=== PATIENT | male | born 1970 | race Caucasian/White ===

== ENCOUNTER 2017-01-27 07:28 | Emergency (ER) | payer SELFPAY ==
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
--- NOTE | 2017-01-27 08:51 | CT ---
EXAMINATION: Non contrast CT head. Coronal and sagittal reformats. HISTORY: Head injury FINDINGS: No evidence of intra or extra axial hemorrhage, mass, midline shift, hydrocephalus or edema. No hypoattenuation changes in the major vascular territories to suggest acute infarct. No abnormal intracranial calcifications are detected. No evidence of substantial vascular calcifica tions. Paranasal sinuses and mastoid air cells are well aerated without substantial findings. The orbits a nd globes are symmetric. Pituitary fossa appears unremarkable. Calvarium is intact. No evidence of skull fracture. There is a small soft tissue hematoma along the medial left parietal region IMPRESSION: No acute intracranial findings.
[2017-01-27 09:24] VITALS: BP 141/82
== END 2017-01-27 09:20 | disposition home or self-care (01) ==
LOC: MW.ED 07:28
DX: S06.0X0A Concussion without loss of consciousness, initial encounter (principal); W03.XXXA Other fall on same level due to collision with another person, initial encounter
CPT/HCPCS: 70450; 70450-26; 99283-25; 99284

== ENCOUNTER 2018-11-21 23:41 | Observation (INO) | payer OTHER ==
[2018-11-22] MEDS ORDERED: Aspirin 81 MG Tab.Chew PO ONE ×2 (00:13→00:25)
[2018-11-22] MEDS ORDERED: Sodium Chloride 0.9% 2.5 ML Syringe FLUSH PRN ×2 (00:13→02:22)
[2018-11-22] MEDS ORDERED: Sodium Chloride 0.9% 10 ML Syringe FLUSH PRN ×2 (00:13→02:22)
[2018-11-22] MEDS ORDERED: Pantoprazole 40 MG Vial IVPUSH ONE (00:15)
[2018-11-22] MEDS ORDERED: Sodium Chloride 0.9% 1,000 ML IV ONE (00:23)
--- NOTE | 2018-11-22 00:23 | EDM.PDOC ---
ED HPI GENERAL MEDICAL PROBLEM - General Chief Complaint: General Stated Complaint: PT HAS NUMBNESS IN HANDS Time Seen by Provider: 11/21/18 23:45 - History of Present Illness INITIAL COMMENTS - FREE TEXT/NARRATIVE: HISTORY AND PHYSICAL: History of present illness: The patient is a 48-year-old male with no significant cardiac or pulmonary disease who presents with a long-standing history of back discomfort for which she has not seen her provider for an restless sleeping was says that he had a normal day and ate chicken Adam for dinner and went to sleep. He went to bed about 7:30 PM and says that about 9:00 he woke up because he was very restless and couldn't sleep and he says that he felt very bloated. He says that his upper abdomen was bloated before going to bed and it seemed more bloated when he woke up. He had a sensation of acid reflux/heartburn and he took some Tums which made him feel worse and then he proceeded to vomit 3 times all food. There was no blood or coffee ground emesis and no bilious emesis. Afterwards he did not feel better and he had no diarrhea. He never felt short of breath. After this episode of vomiting he had some discomfort in his left upper chest wall area and it seemed to persist so he came in for evaluation. Initially with the triage nurse he rated it as a 2/10 and said it felt like a muscle strain but when I talk to him his pain was 0/10 and he says that it did feel muscular like but it also was the acid reflux earlier. The patient has no significant abdominal pain and currently does not feel nauseated. Is no history of food intolerance but he says that he has had issues with milk and cheese and cream sauces in the past and he is not sure if his dinner upset him. Patient denies any significant tobacco use or drug use but does drink beer on a daily basis. He is very active and says he never has chest pain or shortness of breath with activities and he does not get heartburn frequently just once in a while. The patient's family history is significant for father who had cardiac disease and intervention at 61 years of age and a brother who has about 17 stents in his first one was in his late 30s or early 40s. The patient took no other medications prior to coming here and says that he only came in this evening because these events scared him. He also complained to nursing and to me that after the vomiting he did have tingling in his hands bilaterally which has now subsided. He is not sure if that's due to his back problems but says that he does get this episodically and usually he "pops his neck" and it goes away. He has never had this evaluated and currently he is not having any upper extremity weakness or tingling/numbness. The patient says that he is at his baseline with no systemic complaints that he is concerned about tonight's events. He has no leg pain or swelling and he has no new or different neck or back pain he says he did some increase activities a day or so ago and is not sure if maybe he pulled a muscle in his chest wall. The patient cannot elicit the chest pain with deep breaths Patient tells nursing after my initial interview that he did take a baby aspirin at 9 PM with the symptoms Review of systems: As per history of present illness and below otherwise all systems reviewed and negative. Past medical history: As per history of present illness and as reviewed below otherwise noncontributory. Surgical history: As per history of present illness and as reviewed below otherwise noncontributory. Social history: No reported history of drug or alcohol abuse. Family history: As per history of present illness and as reviewed below otherwise noncontributory. Physical exam: General: Well-developed well-nourished fit man who is nontoxic and ambulated into the ED without distress. Vital signs are noted by me. HEENT: Atraumatic, normocephalic, pupils reactive, negative for conjunctival pallor or scleral icterus, mucous membranes moist, throat clear, neck supple, nontender, trachea midline. There are some skin changes on his cheeks, telangiectasias, noted. Lungs: Clear to auscultation, breath sounds equal bilaterally, chest nontender. On palpation there are no defects deformities or crepitus of the chest wall on the left and I cannot reproduce the pain with palpation area, the patient says that when he takes a deep breath he does not feel any discomfort or grabbing in that left chest area. Heart: S1S2, regular rhythm and slightly bradycardic rate on my evaluation, no overt murmurs, negative for clicks, rubs, or JVD. Abdomen: Soft, nondistended, nontender. Negative for masses or hepatosplenomegaly. Negative for costovertebral tenderness. There is no rebound or guarding and bowel sounds are slightly hypoactive on my evaluation. More specifically there is no epigastric right upper or left upper quadrant tenderness Pelvis: Stable nontender. Genitourinary: Deferred. Rectal: Deferred. Extremities: Atraumatic, negative for cords or calf pain. Neurovascular unremarkable. With range of motion of the upper extremities I cannot elicit the chest pain. There is no pedal edema or leg asymmetry Neuro: Awake, alert, oriented. Cranial nerves II through XII unremarkable. Cerebellum unremarkable. Motor and sensory unremarkable throughout. Exam nonfocal. Diagnostics: EKG chest x-ray CBC CMP amylase lipase troponin H. pylori Therapeutics: IV O2 monitor fluids aspirin --3 baby aspirin, as the patient says he took one aspirin at 9 PM, Protonix I discussed with the patient my concerns about his presenting symptoms of the heartburn/acid reflux followed by vomiting and now the left chest pain in light of his family history. He does not have a provider and is not sure what his cholesterol or lipid panel is and although he is active without chest pain these symptoms and his presentation are concerning for either a cardiac or GI issue or cause. At express these concerns to the patient and said that is why we are doing such a workup. He States understanding. Discussed with the patient and at bedside at length all testing results and my concerns. He is positive for H. pylori he also has a significant family history and had this very atypical left-sided chest pain which has resolved. I recommended observation admission and he is agreeable. 0130: I discussed this case with Dr. Galo who accepts the patient is aware of testing results Impression: Episode of chest pain H. pylori positive Definitive disposition and diagnosis as appropriate pending reevaluation and review of above. Left Chest Pain Score (Numeric/FACES): 2 - Related Data Allergies Allergy/AdvReac Type Severity Reaction Status Date / Time No Known Allergies Allergy Verified 11/21/18 23:52 Home Meds: Home Meds . [No Known Home Meds] 01/27/17 [History] Past Medical History - Past Health History Medical/Surgical History: Denies Medical/Surgical History HEENT History: Reports: None Cardiovascular History: Reports: None Respiratory History: Reports: None Gastrointestinal History: Reports: None Genitourinary History: Reports: None Musculoskeletal History: Reports: None Neurological History: Reports: None Psychiatric History: Reports: None Endocrine/Metabolic History: Reports: None Hematologic History: Reports: None Immunologic History: Reports: None Oncologic (Cancer) History: Reports: None Dermatologic History: Reports: None - Infectious Disease History Infectious Disease History: Reports: Chicken Pox - Past Surgical History Head Surgeries/Procedures: Reports: None Social & Family History - Family History Family Medical History: Noncontributory - Tobacco Use Smoking Status *Q: Current Every Day Smoker Years of Tobacco use: 35 Packs/Tins Daily: 0.3 - Caffeine Use Caffeine Use: Reports: Coffee Caffeine Use Comment: 1 cup daily - Recreational Drug Use Recreational Drug Use: No ED ROS GENERAL - Review of Systems Review Of Systems: ROS reveals no pertinent complaints other than HPI. ED EXAM, GENERAL - Physical Exam Exam: See Below (See dictation) Course - Vital Signs Last Recorded V/S: Last Vital Signs Temp 36.1 C 11/21/18 23:48 Pulse 52 L 11/22/18 01:18 Resp 16 11/22/18 01:18 BP 137/94 H 11/21/18 23:48 Pulse Ox 96 11/22/18 01:18 - Orders/Labs/Meds Orders: Active Orders 24 hr Category Date Time Status Cardiac Monitoring [RC] . DIRECTED Care 11/22/18 00:08 Active EKG Documentation Completion [RC] STAT Care 11/22/18 00:08 Active Oxygen Therapy, ED [RC] ASDIRECTED Care 11/22/18 00:08 Active Pulse Oximetry [RC] ASDIRECTED Care 11/22/18 00:08 Active Sodium Chloride 0.9% [Saline Flush] Med 11/22/18 00:13 Active 10 ml FLUSH ASDIRECTED PRN Sodium Chloride 0.9% [Saline Flush] Med 11/22/18 00:13 Active 2.5 ml FLUSH ASDIRECTED PRN Saline Lock Insert [OM.PC] Stat Oth 11/22/18 00:08 Ordered Medication Orders Sodium Chloride (Saline Flush) 10 ml FLUSH ASDIRECTED PRN PRN Reason: Keep Vein Open Last Admin: 11/22/18 00:23 Dose: 10 ml Sodium Chloride (Saline Flush) 2.5 ml FLUSH ASDIRECTED PRN PRN Reason: Keep Vein Open Last Admin: 11/22/18 00:22 Dose: 2.5 ml Labs: Laboratory Tests 11/22/18 11/22/18 11/22/18 Range/Units 00:21 00:21 00:21 WBC 9.40 (4.0-11.0) K/uL RBC 4.82 (4.50-5.90) M/uL Hgb 14.8 (13.0-17.0) g/dL Hct 42.3 (38.0-50.0) % MCV 87.8 (80.0-98.0) fL MCH 30.7 (27.0-32.0) pg MCHC 35.0 (31.0-37.0) g/dL RDW Std Deviation 39.6 (28.0-62.0) fl RDW Coeff of Jessy 13 (11.0-15.0) % Plt Count 220 (150-400) K/uL MPV 9.70 (7.40-12.00) fL Neut % (Auto) 60.3 (48.0-80.0) % Lymph % (Auto) 30.6 (16.0-40.0) % Collier % (Auto) 6.6 (0.0-15.0) % Eos % (Auto) 2.2 (0.0-7.0) % Baso % (Auto) 0.3 (0.0-1.5) % Neut # (Auto) 5.7 (1.4-5.7) K/uL Lymph # (Auto) 2.9 H (0.6-2.4) K/uL Collier # (Auto) 0.6 (0.0-0.8) K/uL Eos # (Auto) 0.2 (0.0-0.7) K/uL Baso # (Auto) 0.0 (0.0-0.1) K/uL Sodium 141 (136-148) mmol/L Potassium 4.2 (3.5-5.1) mmol/L Chloride 105 (98-107) mmol/L Carbon Dioxide 28.0 (21.0-32.0) mmol/L BUN 19 H (7.0-18.0) mg/dL Creatinine 1.0 (0.8-1.3) mg/dL Est Cr Clr Drug Dosing 85.50 mL/min Estimated GFR (MDRD) > 60.0 ml/min Glucose 109 H (74-106) mg/dL Calcium 9.1 (8.5-10.1) mg/dL Total Bilirubin 0.7 (0.2-1.0) mg/dL AST 20 (15-37) IU/L ALT 28 (14-63) IU/L Alkaline Phosphatase 39 L (46-116) U/L Troponin I < 0.050 (0.000-0.056) ng/mL Total Protein 7.6 (6.4-8.2) g/dL Albumin 4.1 (3.4-5.0) g/dL Globulin 3.5 (2.6-4.0) g/dL Albumin/Globulin Ratio 1.2 (0.9-1.6) Amylase 77 (25-115) U/L Lipase 243 (73-393) U/L Urine Color Urine Appearance Urine pH (5.0-8.0) Ur Specific Elgin (1.001-1.035) Urine Protein (NEGATIVE) mg/dL Urine Glucose (UA) (NEGATIVE) mg/dL Urine Ketones (NEGATIVE) mg/dL Urine Occult Blood (NEGATIVE) Urine Nitrite (NEGATIVE) Urine Bilirubin (NEGATIVE) Urine Urobilinogen (<2.0) EU/dL Ur Leukocyte Esterase (NEGATIVE) Ethyl Alcohol mg/dL H. pylori IgG Antibody POSITIVE H (NEG) 11/22/18 11/22/18 Range/Units 00:21 00:21 WBC (4.0-11.0) K/uL RBC (4.50-5.90) M/uL Hgb (13.0-17.0) g/dL Hct (38.0-50.0) % MCV (80.0-98.0) fL MCH (27.0-32.0) pg MCHC (31.0-37.0) g/dL RDW Std Deviation (28.0-62.0) fl RDW Coeff of Jessy (11.0-15.0) % Plt Count (150-400) K/uL MPV (7.40-12.00) fL Neut % (Auto) (48.0-80.0) % Lymph % (Auto) (16.0-40.0) % Collier % (Auto) (0.0-15.0) % Eos % (Auto) (0.0-7.0) % Baso % (Auto) (0.0-1.5) % Neut # (Auto) (1.4-5.7) K/uL Lymph # (Auto) (0.6-2.4) K/uL Collier # (Auto) (0.0-0.8) K/uL Eos # (Auto) (0.0-0.7) K/uL Baso # (Auto) (0.0-0.1) K/uL Sodium (136-148) mmol/L Potassium (3.5-5.1) mmol/L Chloride (98-107) mmol/L Carbon Dioxide (21.0-32.0) mmol/L BUN (7.0-18.0) mg/dL Creatinine (0.8-1.3) mg/dL Est Cr Clr Drug Dosing mL/min Estimated GFR (MDRD) ml/min Glucose (74-106) mg/dL Calcium (8.5-10.1) mg/dL Total Bilirubin (0.2-1.0) mg/dL AST (15-37) IU/L ALT (14-63) IU/L Alkaline Phosphatase (46-116) U/L Troponin I (0.000-0.056) ng/mL Total Protein (6.4-8.2) g/dL Albumin (3.4-5.0) g/dL Globulin (2.6-4.0) g/dL Albumin/Globulin Ratio (0.9-1.6) Amylase (25-115) U/L Lipase (73-393) U/L Urine Color YELLOW Urine Appearance CLEAR Urine pH 6.0 (5.0-8.0) Ur Specific Elgin 1.010 (1.001-1.035) Urine Protein NEGATIVE (NEGATIVE) mg/dL Urine Glucose (UA) NEGATIVE (NEGATIVE) mg/dL Urine Ketones NEGATIVE (NEGATIVE) mg/dL Urine Occult Blood NEGATIVE (NEGATIVE) Urine Nitrite NEGATIVE (NEGATIVE) Urine Bilirubin NEGATIVE (NEGATIVE) Urine Urobilinogen 0.2 (<2.0) EU/dL Ur Leukocyte Esterase NEGATIVE (NEGATIVE) Ethyl Alcohol <3 mg/dL H. pylori IgG Antibody (NEG) Meds: Medications Generic Name Dose Route Start Last Admin Trade Name Freq PRN Reason Stop Dose Admin Sodium Chloride 10 ml 11/22/18 00:13 11/22/18 00:23 Saline Flush FLUSH 10 ml ASDIRECTED PRN Administration Keep Vein Open Sodium Chloride 2.5 ml 11/22/18 00:13 11/22/18 00:22 Saline Flush FLUSH 2.5 ml ASDIRECTED PRN Administration Keep Vein Open Discontinued Medications Generic Name Dose Route Start Last Admin Trade Name Gregorio PRN Reason Stop Dose Admin Aspirin 324 mg 11/22/18 00:13 11/22/18 00:22 Aspirin PO 11/22/18 00:14 243 mg ONETIME ONE Administration Aspirin 243 mg 11/22/18 00:25 11/22/18 00:27 Aspirin PO 11/22/18 00:26 Not Given ONETIME ONE Sodium Chloride 1,000 mls @ 999 mls/hr 11/22/18 00:23 11/22/18 00:29 Normal Saline IV 11/22/18 01:23 999 mls/hr STAT ONE Administration Sodium Chloride Confirm 11/22/18 00:24 11/22/18 00:30 Normal Saline Administered 11/22/18 00:25 20 mls/hr Dose Administration 20 mls @ as directed .ROUTE .STK-MED ONE Pantoprazole Sodium 80 mg 11/22/18 00:15 11/22/18 00:27 Protonix Iv IVPUSH 11/22/18 00:16 80 mg .BOLUS ONE Administration Departure - Departure Time of Disposition: 01:27 Disposition: Refer to Observation Condition: Good Clinical Impression: H. pylori infection Chest pain Qualifiers: Chest pain type: unspecified Qualified Code(s): R07.9 - Chest pain, unspecified - Discharge Information Referrals: PCP,None [Primary Care Provider] - Forms: ED Department Discharge - My Orders Last 24 Hours: My Active Orders 11/22/18 00:08 Cardiac Monitoring [RC] . DIRECTED EKG Documentation Completion [RC] STAT Oxygen Therapy, ED [RC] ASDIRECTED Pulse Oximetry [RC] ASDIRECTED Saline Lock Insert [OM.PC] Stat 11/22/18 00:13 Sodium Chloride 0.9% [Saline Flush] 10 ml FLUSH ASDIRECTED PRN Sodium Chloride 0.9% [Saline Flush] 2.5 ml FLUSH ASDIRECTED PRN - Assessment/Plan Last 24 Hours: My Active Orders 11/22/18 00:08 Cardiac Monitoring [RC] . DIRECTED EKG Documentation Completion [RC] STAT Oxygen Therapy, ED [RC] ASDIRECTED Pulse Oximetry [RC] ASDIRECTED Saline Lock Insert [OM.PC] Stat 11/22/18 00:13 Sodium Chloride 0.9% [Saline Flush] 10 ml FLUSH ASDIRECTED PRN Sodium Chloride 0.9% [Saline Flush] 2.5 ml FLUSH ASDIRECTED PRN
[2018-11-22] MEDS ORDERED: Sodium Chloride 0.9% 20 ML ONE (00:24)
--- NOTE | 2018-11-22 00:42 | CR ---
INDICATION: Chest pain. CHEST, ONE VIEW An AP radiograph of the chest was performed. Comparison: No previous studies are currently available for comparison. The lungs appear clear and no pleural effusions are identified. The cardiomediastinal silhouette and pulmonary vasculature appear normal, as do the visualized bones. IMPRESSION: No acute intrathoracic abnormality identified. NATIVIDAD ARCEO MD [facility] Dictated by: Kilo Arceo MD @ 11/22/2018 00:39:49 (Electronically Signed)
[2018-11-22 00:57] LABS: CHLORIDE,CL 105 mmol/L (98-107); SODIUM,NA 141 mmol/L (136-148)
[2018-11-22] MEDS ORDERED: Acetaminophen 325 MG Tab PO PRN (02:22)
[2018-11-22 07:49] VITALS: BP 134/89
--- NOTE | 2018-11-22 09:32 | PCM.HP ---
H&P History of Present Illness - General Date of Service: 11/22/18 Admit Problem/Dx: Admission Diagnosis/Problem Admission Diagnosis/Problem Chest pain - History of Present Illness Initial Comments - Free Text/Narative: 48 yo male who presents to the ED with complaint of hand tingling. He also reports left upper chest discomfort. It lasted for about 30 minutes after eating dinner. He says he gets these episodes about three times a year. He also reported heart burn and some abdominal bloating at the same time. He denies any shortness of breath, nausea, or cough. He denies any diarrhea, constipation or blood in the stool. Inital EKG and troponin where negative in the ED. Left Chest Pain Score (Numeric/FACES): 2 - Related Data Allergies/Adverse Reactions: Allergies Allergy/AdvReac Type Severity Reaction Status Date / Time No Known Allergies Allergy Verified 11/21/18 23:52 Home Medications: Home Meds Amoxicillin 1 gram PO BID 14 Days #56 tablet 11/22/18 [Rx] Clarithromycin 500 mg PO BID 14 Days #24 tablet 11/22/18 [Rx] Pantoprazole Sodium [Protonix] 40 mg PO DAILY 14 Days #14 tablet. 11/22/18 [Rx ] Past Medical History - Past Health History Medical/Surgical History: Denies Medical/Surgical History HEENT History: Reports: None Cardiovascular History: Reports: None Respiratory History: Reports: None Gastrointestinal History: Reports: None Genitourinary History: Reports: None Musculoskeletal History: Reports: None Neurological History: Reports: None Psychiatric History: Reports: None Endocrine/Metabolic History: Reports: None Hematologic History: Reports: None Immunologic History: Reports: None Oncologic (Cancer) History: Reports: None Dermatologic History: Reports: None - Infectious Disease History Infectious Disease History: Reports: Chicken Pox - Past Surgical History Head Surgeries/Procedures: Reports: None Social & Family History - Family History Family Medical History: Noncontributory - Tobacco Use Smoking Status *Q: Never Smoker Years of Tobacco use: 35 Packs/Tins Daily: 0.3 Second Hand Smoke Exposure: No - Caffeine Use Caffeine Use: Reports: Coffee Caffeine Use Comment: 1 cup daily - Recreational Drug Use Recreational Drug Use: No H&P Review of Systems - Review of Systems: Review Of Systems: ROS reveals no pertinent complaints other than HPI. Exam - Exam Exam: See Below - Vital Signs Vital Signs: Last Vital Signs Temp 36.6 C 11/22/18 07:48 Pulse 55 L 11/22/18 07:48 Resp 17 11/22/18 04:00 BP 134/89 11/22/18 07:48 Pulse Ox 98 11/22/18 07:48 Weight: 82 kg - Exam General: Alert, Oriented HEENT: Mucosa Moist & [place] Neck: Supple, Trachea Midline Lungs: Clear to Auscultation, Normal Respiratory Effort Cardiovascular: Regular Rate, Regular Rhythm GI/Abdominal Exam: Normal Bowel Sounds, Soft, Non-Tender Extremities: Normal Inspection, Normal Range of Motion, Non-Tender Skin: Warm, Dry, Intact Neurological: Cranial Nerves Intact - Patient Data Lab Results Last 24 hrs: Laboratory Results - last 24 hr 11/22/18 11/22/18 11/22/18 Range/Units 00:21 00:21 00:21 WBC 9.40 (4.0-11.0) K/uL RBC 4.82 (4.50-5.90) M/uL Hgb 14.8 (13.0-17.0) g/dL Hct 42.3 (38.0-50.0) % MCV 87.8 (80.0-98.0) fL MCH 30.7 (27.0-32.0) pg MCHC 35.0 (31.0-37.0) g/dL RDW Std Deviation 39.6 (28.0-62.0) fl RDW Coeff of Jessy 13 (11.0-15.0) % Plt Count 220 (150-400) K/uL MPV 9.70 (7.40-12.00) fL Neut % (Auto) 60.3 (48.0-80.0) % Lymph % (Auto) 30.6 (16.0-40.0) % [place] % (Auto) 6.6 (0.0-15.0) % Eos % (Auto) 2.2 (0.0-7.0) % Baso % (Auto) 0.3 (0.0-1.5) % Neut # (Auto) 5.7 (1.4-5.7) K/uL Lymph # (Auto) 2.9 H (0.6-2.4) K/uL [place]lin # (Auto) 0.6 (0.0-0.8) K/uL Eos # (Auto) 0.2 (0.0-0.7) K/uL Baso # (Auto) 0.0 (0.0-0.1) K/uL Sodium 141 (136-148) mmol/L Potassium 4.2 (3.5-5.1) mmol/L Chloride 105 (98-107) mmol/L Carbon Dioxide 28.0 (21.0-32.0) mmol/L BUN 19 H (7.0-18.0) mg/dL Creatinine 1.0 (0.8-1.3) mg/dL Est Cr Clr Drug Dosing 85.50 mL/min Estimated GFR (MDRD) > 60.0 ml/min Glucose 109 H (74-106) mg/dL Calcium 9.1 (8.5-10.1) mg/dL Total Bilirubin 0.7 (0.2-1.0) mg/dL AST 20 (15-37) IU/L ALT 28 (14-63) IU/L Alkaline Phosphatase 39 L (46-116) U/L Troponin I < 0.050 (0.000-0.056) ng/mL Total Protein 7.6 (6.4-8.2) g/dL Albumin 4.1 (3.4-5.0) g/dL Globulin 3.5 (2.6-4.0) g/dL Albumin/Globulin Ratio 1.2 (0.9-1.6) Amylase 77 (25-115) U/L Lipase 243 (73-393) U/L Urine Color Urine Appearance Urine pH (5.0-8.0) Ur Specific [place] (1.001-1.035) Urine Protein (NEGATIVE) mg/dL Urine Glucose (UA) (NEGATIVE) mg/dL Urine Ketones (NEGATIVE) mg/dL Urine Occult Blood (NEGATIVE) Urine Nitrite (NEGATIVE) Urine Bilirubin (NEGATIVE) Urine Urobilinogen (<2.0) EU/dL Ur Leukocyte Esterase (NEGATIVE) Ethyl Alcohol mg/dL H. pylori IgG Antibody POSITIVE H (NEG) 11/22/18 11/22/18 11/22/18 Range/Units 00:21 00:21 06:30 WBC (4.0-11.0) K/uL RBC (4.50-5.90) M/uL Hgb (13.0-17.0) g/dL Hct (38.0-50.0) % MCV (80.0-98.0) fL MCH (27.0-32.0) pg MCHC (31.0-37.0) g/dL RDW Std Deviation (28.0-62.0) fl RDW Coeff of Jessy (11.0-15.0) % Plt Count (150-400) K/uL MPV (7.40-12.00) fL Neut % (Auto) (48.0-80.0) % Lymph % (Auto) (16.0-40.0) % [place] % (Auto) (0.0-15.0) % Eos % (Auto) (0.0-7.0) % Baso % (Auto) (0.0-1.5) % Neut # (Auto) (1.4-5.7) K/uL Lymph # (Auto) (0.6-2.4) K/uL [place] # (Auto) (0.0-0.8) K/uL Eos # (Auto) (0.0-0.7) K/uL Baso # (Auto) (0.0-0.1) K/uL Sodium (136-148) mmol/L Potassium (3.5-5.1) mmol/L Chloride (98-107) mmol/L Carbon Dioxide (21.0-32.0) mmol/L BUN (7.0-18.0) mg/dL Creatinine (0.8-1.3) mg/dL Est Cr Clr Drug Dosing mL/min Estimated GFR (MDRD) ml/min Glucose (74-106) mg/dL Calcium (8.5-10.1) mg/dL Total Bilirubin (0.2-1.0) mg/dL AST (15-37) IU/L ALT (14-63) IU/L Alkaline Phosphatase (46-116) U/L Troponin I < 0.050 (0.000-0.056) ng/mL Total Protein (6.4-8.2) g/dL Albumin (3.4-5.0) g/dL Globulin (2.6-4.0) g/dL Albumin/Globulin Ratio (0.9-1.6) Amylase (25-115) U/L Lipase (73-393) U/L Urine Color YELLOW Urine Appearance CLEAR Urine pH 6.0 (5.0-8.0) Ur Specific [place] 1.010 (1.001-1.035) Urine Protein NEGATIVE (NEGATIVE) mg/dL Urine Glucose (UA) NEGATIVE (NEGATIVE) mg/dL Urine Ketones NEGATIVE (NEGATIVE) mg/dL Urine Occult Blood NEGATIVE (NEGATIVE) Urine Nitrite NEGATIVE (NEGATIVE) Urine Bilirubin NEGATIVE (NEGATIVE) Urine Urobilinogen 0.2 (<2.0) EU/dL Ur Leukocyte Esterase NEGATIVE (NEGATIVE) Ethyl Alcohol <3 mg/dL H. pylori IgG Antibody (NEG) Result Diagrams: 11/22/18 00:21 11/22/18 00:21 Problem List Initiated/Reviewed/Updated: Yes Orders Last 24hrs: Active Orders 24 hr Category Date Time Status Patient Status [ADT] Stat ADT 11/22/18 01:27 Active Cardiac Monitoring [RC] Q8H Care 11/22/18 00:08 Active EKG Documentation Completion [RC] STAT Care 11/22/18 00:08 Active Oxygen Therapy, ED [RC] ASDIRECTED Care 11/22/18 00:08 Active Pulse Oximetry [RC] ASDIRECTED Care 11/22/18 00:08 Active Ready for Discharge [RC] PER UNIT ROUTINE Care 11/22/18 09:22 Ordered Heart Healthy Diet [DIET] Diet 11/22/18 Breakfast Active TROPONIN I [CHEM] Routine Lab 11/22/18 12:21 Ordered Acetaminophen [Tylenol] Med 11/22/18 02:22 Active 650 mg PO Q6H PRN Sodium Chloride 0.9% [Saline Flush] Med 11/22/18 00:13 Active 10 ml FLUSH ASDIRECTED PRN Sodium Chloride 0.9% [Saline Flush] Med 11/22/18 00:13 Active 2.5 ml FLUSH ASDIRECTED PRN Saline Lock Insert [OM.PC] Routine Oth 11/22/18 02:22 Ordered Saline Lock Insert [OM.PC] Stat Oth 11/22/18 00:08 Ordered Medication Orders Acetaminophen (Tylenol) 650 mg PO Q6H PRN PRN Reason: Pain Sodium Chloride (Saline Flush) 10 ml FLUSH ASDIRECTED PRN PRN Reason: Keep Vein Open Last Admin: 11/22/18 00:23 Dose: 10 ml Sodium Chloride (Saline Flush) 2.5 ml FLUSH ASDIRECTED PRN PRN Reason: Keep Vein Open Last Admin: 11/22/18 00:22 Dose: 2.5 ml Assessment/Plan Comment:: 48 yo male admitted for chest pain for rule out of acute coronary syndrome. His first two troponins are negative and patient is requesting discharge before the third repeat lab. He tested positive for H.pylori and due to his dyspepsia he is wanting treatment. He was given a prescription for Protonix, amoxicillin, and clarithromycin. Due to strong family history of heart disease he was referred to outpatient cardiac stress testing. He was also referred to surgery for endoscopy and to a PCP.
== END 2018-11-22 10:20 | disposition home or self-care (01) ==
LOC: MW.ED 23:41 → MW.MS 11-22 01:27
PROVIDERS: ADMIT Internal Medicine; ATTEND Internal Medicine
DX: R07.89 Other chest pain (principal); Z87.891 Personal history of nicotine dependence; Z82.49 Family history of ischemic heart disease and other diseases of the circulatory system
CPT/HCPCS: 36415; 71045; 80053; 81003; 82150; 83690; 84484; 85025; 86677; 93005; 96361; 96374; 99285; A9270; C9113; G0480; J7040; 99284; G0378

== ENCOUNTER 2020-11-14 20:21 | Emergency (ER) | payer OTHER ==
--- NOTE | 2020-11-14 21:39 | CT ---
INDICATION: Injury. Headache TECHNIQUE: CT head without contrast. COMPARISON: 01/27/2017 FINDINGS: The ventricles and sulci are within normal limits for the patient`s age. There is no mass effect or midline shift. There is no loss of kim-white differentiation. There is no evidence of an acute intracranial hemorrhage. No acute calvarial fracture is seen. There is a left maxillary sinus mucosal retention cyst or polyp. There is apparent partial opacification of a few mastoid air cells versus volume averaging. The visualized orbits are within normal limits. IMPRESSION: No evidence of an acute intracranial hemorrhage, mass effect or loss of kim-white differentiation. Mild left maxillary sinus disease. Please note that all CT scans at this facility use dose modulation, iterative reconstruction, and/or weight-based dosing when appropriate to reduce radiation dose to as low as reasonably achievable. Dictated by Ameya Abreu MD @ Nov 14 2020 9:31PM Signed by Dr. Ameya Abreu @ Nov 14 2020 9:39PM
[2020-11-14] MEDS ORDERED: Cyclobenzaprine 10 MG Tab PO ONE (21:49)
[2020-11-14] MEDS ORDERED: Ibuprofen 600 MG Tab PO ONE (21:49)
--- NOTE | 2020-11-14 21:54 | EDM.PDOC ---
ED HPI GENERAL MEDICAL PROBLEM - General Chief Complaint: Head Injury Stated Complaint: HEAD TRAUMA INJURY Time Seen by Provider: 11/14/20 20:36 - History of Present Illness INITIAL COMMENTS - FREE TEXT/NARRATIVE: HISTORY AND PHYSICAL: History of present illness: This is a healthy 50-year-old gentleman with no significant past medical history presents ER today secondary to blunt head trauma that occurred approximately 1 PM while he was working. 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 Patient denies any LOC, patient denies any need for extrication. Patient reports that he did not hit his head against the ground. Patient reports that he started developing pain to his right lateral neck and headache with some nausea at around 7 PM when he got home after eating dinner and so his brought him here for further evaluation. Patient denies any weakness to his upper or lower extremities. Patient denies any vomiting, diarrhea, chest pain, shortness of breath, abdominal pain. Patient has any pain or trauma to his upper or lower extremities. Patient reports discomfort to his right shoulder and right lateral neck as well as his right trapezius muscles. Patient denies any history of hypertension, diabetes, liver, lung, kidney problems. Patient immunizations up-to-date. Patient has no known drug allergies. Review of systems: As per history of present illness and below otherwise all systems reviewed and negative. Past medical history: As per history of present illness and as reviewed below otherwise noncontributory. Surgical history: As per history of present illness and as reviewed below otherwise noncontributory. Social history: No reported history of drug or alcohol abuse. Family history: As per history of present illness and as reviewed below otherwise noncontributory. Physical exam: This patient was seen and evaluated during the 2019 SARS-CoV-2 novel coronavirus pandemic period. Community viral transmission is ongoing at time of this encounter and the emergency department is operating under pandemic response procedures. Constitutional: Patient is oriented to person, place, and time. Appears well-developed and well-nourished. No distress. HEENT: Moist mucous membranes Head: Normocephalic and atraumatic Eyes: Right eye exhibits no discharge. Left eye exhibits no discharge. No scleral icterus Neck: Normal range of motion. No tracheal deviation present. Cardiovascular: Normal rate and regular rhythm. Pulmonary: Effort normal, no respiratory distress. Abdominal: No distention Musculoskeletal: Normal range of motion Neurologic: Alert and oriented to person, place and time. Skin: [place], warm and dry. Psychiatric: Normal mood and affect. Behavior is normal. Judgment and thought content normal. Nursing note and vital signs have been reviewed Patient has no C-spine T-spine or L-spine tenderness to palpation. Patient has no left upper or right upper quadrant tenderness to palpation. Patient has no crepitus to palpation to the anterior chest wall. Patient is neurologically intact. Patient does not present with any signs or or symptoms that would be consistent with acute intracranial, intra-abdominal, intrathoracic, or long bone injury. All long bones have been palpated and range of motion been performed and there is no evidence of any acute pathology. Patient's ER physical exam significant for tenderness palpation to his right sternocleidomastoid muscle and his right trapezius muscles. No point C, T, L-spine tenderness palpation. Patient does have an abrasion to his occiput at approximately 4 cm long. Patient has no crepitance or bony tenderness. Diagnostics: CT head reveals no acute pathology or bleed. Therapeutics: Flexeril/ibuprofen Assessment and plan: 50-year-old gentleman who presents ER today with blunt head trauma approximately 7 8 hours prior to arrival to the ED. Patient has had no LOC. Patient did have some nausea this evening. Patient CT scan of his head reveals no acute pathology. Patient does not exhibit any point bony tenderness to his C-spine T- spine or L-spine tenderness. Patient does have some discomfort to his right la teral neck and right trapezius area. Patient be treated with ibuprofen and Flexeril. Reassessment at the time of disposition demonstrates that the patient is in no acute distress. The patient has remained stable throughout the entire ED visit and is without objective evidence for acute process requiring urgent intervention or hospitalization. The patient is stable for discharge, counseling is provided as documented above, discussed symptomatic treatment and specific conditions for return. I have spoken with the patient/caregiver and discussed todays findings, in addition to providing specific details for the plan of care. Questions are answered and there is agreement with the plan. Definitive disposition and diagnosis as appropriate pending reevaluation and review of above. head/neck Pain Score (Numeric/FACES): 5 - Related Data Allergies Allergy/AdvReac Type Severity Reaction Status Date / Time No Known Allergies Allergy Verified 11/14/20 20:48 Home Meds: Home Meds Cyclobenzaprine [Flexeril] 10 mg PO TID PRN #20 tab 11/14/20 [Rx] Ibuprofen 600 mg PO Q6HR PRN #30 tablet 11/14/20 [Rx] Past Medical History - Past Health History Medical/Surgical History: Denies Medical/Surgical History HEENT History: Reports: None Cardiovascular History: Reports: None Respiratory History: Reports: None Gastrointestinal History: Reports: None Genitourinary History: Reports: None Musculoskeletal History: Reports: None Neurological History: Reports: None Psychiatric History: Reports: None Endocrine/Metabolic History: Reports: None Insulin Pump Model and [employer] Supervisor: None Hematologic History: Reports: None Immunologic History: Reports: None Oncologic (Cancer) History: Reports: None Dermatologic History: Reports: None - Infectious Disease History Infectious Disease History: Reports: Chicken Pox - Past Surgical History Head Surgeries/Procedures: Reports: None Social & Family History - Family History Family Medical History: No Pertinent Family History - Caffeine Use Caffeine Use: Reports: Coffee Caffeine Use Comment: 1 cup daily - Recreational Drug Use Recreational Drug Use: Yes Drug Use in Last 12 Months: Yes Recreational Drug Type: Reports: Marijuana/Hashish ED ROS GENERAL - Review of Systems Review Of Systems: See Below ED EXAM, HEAD INJURY - Physical Exam Exam: See Below Course - Vital Signs Last Recorded V/S: Last Vital Signs Temp 97.8 F 11/14/20 20:40 Pulse 81 11/14/20 20:40 Resp 18 11/14/20 20:40 BP 151/104 H 11/14/20 20:40 Pulse Ox 97 11/14/20 20:40 - Orders/Labs/Meds Orders: Active Orders 24 hr Category Date Time Status Cyclobenzaprine [Flexeril] Med 11/14/20 21:49 Once 10 mg PO ONETIME ONE Ibuprofen [Motrin] Med 11/14/20 21:49 Once 600 mg PO ONETIME ONE Departure - Departure Time of Disposition: 21:52 Disposition: Home, Self-Care 01 Condition: Good Clinical Impression: Head injury Qualifiers: Encounter type: initial encounter Qualified Code(s): S09.90XA - Unspecified injury of head, initial encounter Minor head injury without loss of consciousness Qualifiers: Encounter type: initial encounter Qualified Code(s): S09.90XA - Unspecified injury of head, initial encounter - Discharge Information Instructions: Head Injury, Adult Referrals: PCP,None [Primary Care Provider] - Additional Instructions: You were seen and evaluated in the ER today secondary to head injury earlier this afternoon. CT scan of your head did not reveal any evidence of injury to the brain or skull. You will be given a prescription for ibuprofen and Flexeril to assist you with pain and discomfort that you will be experiencing throughout your neck shoulders and chest. [facility] [address] [place] [id number] The following information is given to patients seen in the emergency department who are being discharged to home. This information is to outline your options for follow-up care. We provide all patients seen in our emergency department with a follow-up referral. The need for follow-up, as well as the timing and circumstances, are variable depending upon the specifics of your emergency department visit. If you don't have a primary care physician on staff, we will provide you with a referral. We always advise you to contact your personal physician following an emergency department visit to inform them of the circumstance of the visit and for follow-up with them and/or the need for any referrals to a consulting specialist. The emergency department will also refer you to a specialist when appropriate. This referral assures that you have the opportunity for follow-up care with a specialist. All of these measure are taken in an effort to provide you with optimal care, which includes your follow-up. Under all circumstances we always encourage you to contact your private physician who remains a resource for coordinating your care. When calling for follow-up care, please make the office aware that this follow-up is from your recent emergency room visit. If for any reason you are refused follow-up, please contact the [facility] Emergency Department at and asked to speak to the emergency department charge nurse. [facility] [address] [place] [id number] [facility] [address] [place] [id number] Sepsis Event Note (ED) - Evaluation Sepsis Screening Result: No Definite Risk - Focused Exam Vital Signs: Vital Signs Temp Pulse Resp BP Pulse Ox 11/14/20 20:40 97.8 F 81 18 151/104 H 97 - My Orders Last 24 Hours: My Active Orders 11/14/20 21:49 Cyclobenzaprine [Flexeril] 10 mg PO ONETIME ONE Ibuprofen [Motrin] 600 mg PO ONETIME ONE - Assessment/Plan Last 24 Hours: My Active Orders 11/14/20 21:49 Cyclobenzaprine [Flexeril] 10 mg PO ONETIME ONE Ibuprofen [Motrin] 600 mg PO ONETIME ONE
[2020-11-14 23:19] VITALS: BP 130/69; PULSE 69
== END 2020-11-14 22:10 | disposition home or self-care (01) ==
LOC: MW.ED 20:21
DX: S00.01XA Abrasion of scalp, initial encounter (principal); W20.8XXA Other cause of strike by thrown, projected or falling object, initial encounter
CPT/HCPCS: 70450; 99283; A9270; 99284